=== PATIENT | male | born 1945 | race Caucasian/White ===

== ENCOUNTER 2024-11-19 13:50 | Outpatient (CLI) | payer MEDICARE, SELFPAY ==
--- NOTE | ~2024-11-19 | PE_ITS ---
EXAMINATION: PET_PETPSMAST_PT DATE: 11/19/2024 15:52 INDICATION: Prostate cancer TECHNIQUE: 4.736 mCi of Illucix Ga-[id number]) was administered i.v. Low dose computed deb graphy (CT) images were acquired from the base of the brain to the base of the brain to the proximal thighs for attenuation correction and anatomic localization. Positron emission tomography (PET) image s were acquired in the same distribution beginning 94 minutes after injection. Images including fused PET/CT images were reconstructed in axial, coronal, and sagittal planes. Automated exposure control technique was employed. The dose-length product was 1172.68mGy-cm. COMPARISON: None FINDINGS: Head/neck: Typical pattern of symmetric physiologic increased activity in the lacrimal, parotid and submandibula r glands as well as along the mucosa of the nasal and oral cavities, pharynx and hypopharynx. No path ologically enlarged cervical lymphadenopathy or suspicious foci of increased uptake in the visualized head or neck. Chest: Dependent atelectasis in the lungs. There are couple calcified nodules in the right lower lobe consis tent with old granulomatous disease. No suspicious pulmonary nodules or pleural effusion. Heart size is normal. Atherosclerotic coronary artery calcifications and change of prior median sternotomy and c oronary artery bypass grafting. Thoracic aorta is normal in caliber. No pathologically enlarged PSMA avid thoracic lymphadenopathy. Abdomen/pelvis/proximal thighs: Physiologic renal accumulation and excretion of activity in the kidneys, bladder and along portions o f ureters. Region of increased asymmetric activity with maximal SUV of 10.9 at the right side of the normal sized prostate consistent with primary prostate cancer. Small fat-containing left inguinal her hanane with vasectomy clips along the bilateral spermatic cords. Normal degree and slightly heterogenous pattern of increased uptake throughout the liver and spleen without radiologic correlate or dominant PSMA avid lesion. The gallbladder, pancreas and bilateral adrenal glands are normal. Moderate uptake scattered throughout the bowels with typical duodenal and proximal jejunal predominance and without radiologic correlate, also likely physiologic. Moderate sigmoid diverticulosis without adjacent from trace stranding to suggest diverticulitis. No other abnormal foci of increased uptake or pathological ly enlarged lymphadenopathy in the abdomen, pelvis or proximal thighs. Musculoskeletal: Moderate to severe spondylosis of the spine with bridging osteophytes at multiple levels consistent w ith diffuse idiopathic skeletal hyperostosis (DISH). No suspicious lytic, blastic or abnormally PSMA avid bone lesions. Tiny mild focus of extravasated activity at the site of injection at the right cho d. IMPRESSION: 1. Region of increased uptake at the right side of the prostate consistent with primary prostate canc er. No evident metastatic disease. Reviewed, dictated and finalized at location B. IMPRESSION: 1. Region of increased uptake at the right side of the prostate consistent with primary prostate cancer. No evident metastatic disease.
== END 2024-11-19 13:51 | disposition home or self-care (01) ==
PROVIDERS: PCP Family Medicine Sports Medicine; Visit Provider Urology
DX: C61 Malignant neoplasm of prostate (principal)
CPT/HCPCS: 78815; A9596